=== PATIENT | male | born 1965 | race Caucasian/White ===

== ENCOUNTER → 2016-11-01 | Outpatient (CLI) | payer BC ==
[~2016-11-01] MED LIST: AMLO-110 PO; ATOR10TA88 PO; GADAVIST IV PRN; GLC/500 PO; LOSA100T26 PO; OXYC-57 PO; POLY335019 PO; TAMS0.4C38 PO
--- NOTE | 2016-11-01 16:38 | DIAGNOSTIC IMAGING REPORT ---
MRI OF THE BRAIN COMBO INTERNAL AUDITORY CANAL PROTOCOL CLINICAL HISTORY: Bilateral sensorineural hearing loss, left greater than right. COMPARISON STUDY: No priors. TECHNIQUE: MRI of the brain was performed utilizing various T1 and T2-weighted sequences in the axial, sagittal, and coronal planes. Contrast-enhanced sequences were acquired following the administration of 10 cc of Gadavist. Additional high-resolution imaging was performed through the skull base to assess the internal auditory canals both pre and postcontrast. FINDINGS: Brain parenchyma: There is minimal subcortical and periventricular microangiopathic change. The brain parenchyma is otherwise normal in appearance. There is no hemorrhage or mass effect. There is no restricted diffusion to suggest acute ischemia. No enhancing mass lesion is identified on the postcontrast images. Culp-white matter differentiation is preserved. No extra-axial fluid collection is seen. The cerebellar tonsils are normal in configuration. Ventricles, sulci, and cisterns: Normal in configuration. Internal auditory canals: There is no enhancing mass lesion identified within the cerebellopontine angle bilaterally. No mass lesion or abnormal enhancement is identified along the course of the internal auditory canals. Pituitary and sella: Unremarkable. Intracranial vasculature: Normal flow voids are maintained at the skull base. Orbits: The bony orbits are grossly intact. Orbital contents are normal in appearance. Sinuses and mastoids: Findings suggest previous paranasal sinus surgery. There is trace mucosal thickening within the maxillary and ethmoid sinuses. There is a large left mastoid effusion, with fluid identified in the left middle ear. The right mastoid air cells are clear. Calvarium: Unremarkable. Cervical cord: Partially visualized cervical spinal cord is normal in morphology and signal intensity. IMPRESSION: 1. No acute intracranial abnormality. 2. Unremarkable MRI assessment of the internal auditory canals. 3. Large left mastoid effusion with fluid present in the left middle ear. Electronically signed by: Rj Rudolph M.D. 11/01/2016 4:36 PM Dictated Date/Time: 11/01/2016 4:30 PM
== END | disposition home or self-care (01) ==
LOC: C.MRI 14:38
DX: H90.5 Unspecified sensorineural hearing loss (principal); H74.92 Unspecified disorder of left middle ear and mastoid

== ENCOUNTER → 2016-12-01 | Outpatient (CLI) | payer BC ==
[~2016-12-01] MED LIST changes: -GADAVIST IV PRN
--- NOTE | 2016-12-01 13:21 | DIAGNOSTIC IMAGING REPORT ---
CHEST 2 VIEWS ROUTINE CLINICAL HISTORY: R05 Chronic cough PATIENT WITH 3 MONTHS OF COUGH. HAD PNEUMONIA dyspnea COMPARISON STUDY: 09/22/2016 FINDINGS: Improved exam. Left base is now considered clear. Potential developing interstitial and peribronchial prominence medial right base. Slight reactive fullness right hilum unchanged. IMPRESSION: 1. Mixed findings with a left basilar infiltrative process resolved. 2. Potential early parenchymal infiltrate right base. Electronically signed by: True Marie M.D. 12/01/2016 1:19 PM Dictated Date/Time: 12/01/2016 1:19 PM
== END | disposition home or self-care (01) ==
LOC: C.RAD 12:43
DX: R05 Cough (principal)

== ENCOUNTER → 2018-02-11 | Outpatient (CLI) | payer OTHER ==
[~2018-02-11] MED LIST changes: +ATOR10TA82 PO; -ATOR10TA88 PO; -LOSA100T26 PO; +LOSA100T33 PO
--- NOTE | 2018-02-11 16:32 | DIAGNOSTIC IMAGING REPORT ---
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 FINDINGS: The soft tissues, psoas shadows, renal outlines and intestinal gas pattern appear normal. There is no evidence for bowel obstruction. No abnormal abdominal calcifications are seen. IMPRESSION: Normal study. No change in the prior exam. Several stable pelvic vascular calcifications. The above report was generated using voice recognition software. It may contain grammatical, syntax or spelling errors. Electronically signed by: True Marie M.D. 02/11/2018 4:31 PM Dictated Date/Time: 02/11/2018 4:31 PM
== END | disposition home or self-care (01) ==
LOC: C.RAD 15:45
PROVIDERS: ATTEND Urology
DX: N20.0 Calculus of kidney (principal)